=== PATIENT | female | born 2000 | race Native Hawaiian/Other Pacific Islander ===

== ENCOUNTER 2024-03-01 09:48 | Emergency (ER) | payer SELFPAY ==
[2024-03-01 10:32] LABS: Specific Gravity 1.026 (1.005-1.030)
[2024-03-01 10:33] LABS: Specific Gravity 1.026 (1.005-1.030); Sqamous Epithelial <5 /HPF (None Seen); Urine Bacteria None Seen /HPF (<20); Urine Bilirubin NEGATIVE (Negative); Urine Blood Negative (Negative); Urine Clarity Turbid (Clear); Urine Color Yellow (Yellow); Urine Culture Reflex Order NOT NEEDED; Urine Glucose NEGATIVE (Negative); Urine Ketones NEGATIVE (Negative); Urine Microscopic Reflex YN ORDER UMIC; Urine Mucus 1+ /HPF (None Seen); Urine Nitrite NEGATIVE (Negative); Urine Protein TRACE (Negative); Urine RBC <5 /HPF (None Seen); Urine Urobilinogen Normal (Normal); Urine WBC <5 /HPF (<5); Urine pH 6.5 (5.0-7.0)
[2024-03-01 10:55] LABS: Absolute Basophils 0.1 K/uL (0-0.5); Absolute Eosinophils 0.3 K/uL (0-0.5); Absolute Lymphocytes (CBC) 1.9 K/uL (0.7-4.9); Absolute Monocytes 0.4 K/uL (0.1-1.3); Absolute Neutrophil 4.4 K/uL (1.8-8.0); Eosinophils % 3.7 % (0-4.4); Hematocrit 40.8 % (36.0-45.0); Hemoglobin 13.5 g/dL (12.0-15.0); Lymphocytes % 26.9 % (15.3-44.8); MCH 28.9 pg (27.0-35.0); MCHC 33.1 g/dL (32.0-36.0); MCV 87.4 fL (80-100); MPV 7.2 fL (7.6-11.3); Neutrophils % 62.4 % (41.7-73.7); Platelets 351 thou/uL (152-406); RBC Red Blood Cell Count 4.67 M/uL (3.86-4.86); Red Cell Distribution Width 13.6 % (12.1-15.2)
[2024-03-01 11:08] LABS: Albumin 3.7 g/dL (3.4-5.0); Anion Gap 5.7 mEq/L (5.0-15.0); Bilirubin Total 0.3 mg/dL (0.2-1.0); Globulin 3.8 g/dL (2.3-3.5); Potassium 3.7 mEq/L (3.5-5.1); Protein, Total 7.5 g/dL (6.4-8.2)
--- NOTE | 2024-03-01 11:35 | RAD REPORT ---
EXAM DESCRIPTION: US - Abdomen Exam Limited - 03/01/2024 10:39 am CLINICAL HISTORY: Abdominal pain. COMPARISON: None. FINDINGS: Gallbladder is contracted. This limits detection of a gallstones. A gallstone however is n ot seen. Gallbladder wall thickness is within normal limits given the contraction The biliary tree is normal caliber. IMPRESSION: Contracted gallbladder. This can be seen with chronic cholecystitis
--- NOTE | 2024-03-01 11:56 | RAD REPORT ---
EXAM DESCRIPTION: CT - Abdomen Pelvis W Contrast - 03/01/2024 10:47 am CLINICAL HISTORY: Abdominal pain COMPARISON: none. TECHNIQUE: Computed axial tomography of the abdomen pelvis was obtained. 100 cc Isovue-300 was admin istered intravenously. Oral contrast was not requested which limits evaluation of bowel and appendix All CT scans are performed using dose optimization technique as appropriate and may include automated exposure control or mA/KV adjustment according to patient size. FINDINGS: Minimal stranding adjacent to the pancreatic head. Remainder the pancreas is unremarkable. The liver, spleen, adrenals and kidneys are unremarkable. Gallbladder is contracted. Heterogeneous appearance to the liver. Small amount of free fluid within the pelvis. No adnexal mass seen There is no evidence of diverticulitis. Normal appendix IMPRESSION: Minimal stranding adjacent to the pancreatic head may indicate a minimal pancreatitis Heterogeneous appearance to the liver of uncertain significance. Pelvic ultrasound recommended
--- NOTE | 2024-03-01 13:07 | ER ---
Nurse's Notes [facility] Name: Shelly Scott Age: 23 yrs Sex: Female : 2000 Arrival Date: 03/01/2024 Time: 09:48 Bed 10 Private MD: Diagnosis: Abdominal pain, unspecified;Other acute pancreatitis without necrosis or infection Presentation: 03/01 10:09 Chief complaint: Patient states: abdominal pain for 2 days. Coronavirus screen: Client cp4 denies travel out of the [place] in the last 14 days. At this time, the client does not indicate any symptoms associated with coronavirus-19. Ebola Screen: Patient negative for fever greater than or equal to 101.5 degrees Fahrenheit, and additional compatible Ebola Virus Disease symptoms Patient denies exposure to infectious person. Patient denies travel to an Ebola-affected area in the 21 days before illness onset. No symptoms or risks identified at this time. Initial Sepsis Screen: Does the patient meet any 2 criteria? No. Patient's initial sepsis screen is negative. Does the patient have a suspected source of infection? No. Patient's initial sepsis screen is negative. Risk Assessment: Do you want to hurt yourself or someone else? Patient reports no desire to harm self or others. Onset of symptoms was February 28, 2024. 10:09 Method Of Arrival: Ambulatory 4 10:09 Acuity: LORRAINE 3 cp4 Triage Assessment: 10:10 General: Appears uncomfortable, Behavior is calm, cooperative, appropriate for age. cp4 Pain: Complains of pain in abdomen. GI: Abdomen is round non-distended, Bowel sounds present X 4 quads. Abd is soft and non tender X 4 quads. Reports nausea, vomiting. 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 - Infectious Disease History:: Denies. CDIFF, C. Auris, ESBL, MRSA (w/in 1 year), VRE (w/in 1 year), TB, . - Social history:: Smoking status: Patient denies any tobacco usage or history of. - Family history:: not pertinent. - Hospitalizations: : No recent hospitalization is reported. Screenin:12 [facility] ED Fall Risk Assessment (Adult) History of falling in the last 3 months, cp4 including since admission No falls in past 3 months (0 pts) Confusion or Disorientation No (0 pts) Intoxicated or Sedated No (0 pts) Impaired Gait No (0 pts) Mobility Assist Device Used No (0 pt) Altered Elimination No (0 pt) Score/Fall Risk Level 0 - 2 = Low Risk Oriented to surroundings, Maintained a safe environment, Assessed \T\ reinforced patient's understanding of fall precautions, Hourly rounding (assess needs \T\ fall precautionary measures) done. Abuse screen: Denies threats or abuse. Nutritional screening: No deficits noted. Tuberculosis screening: No symptoms or risk factors identified. Assessment: 10:12 Reassessment: No changes from previously documented assessment. cp4 Vital Signs: 10:09 BP 124 / 83; Pulse 63; Resp 16; Temp 98.2; Pulse Ox 100% ; Weight 82.55 kg; Height 0 cp4 ft. 2 in. ; Pain 7/10; 13:14 BP 118 / 74; Pulse 67; Resp 18; Pulse Ox 100% ; cp4 10:09 Body Mass Index 53579.61 (82.55 kg, 6 cm) cp4 10:09 Pain Scale: Adult cp4 ED Course: 09:50 Patient arrived in ED. rg4 09:57 Ang Arana MD is Attending Physician. rn 10:02 Dottie Dia is Primary Nurse. cp4 10:10 Triage completed. cp4 10:10 Arm band placed on right wrist. Patient placed in an exam room, on a stretcher. cp4 10:12 Placed in gown. Bed in low position. Call light in reach. Side rails up X 1. cp4 10:26 Test, Urine Sent. cp4 10:26 Urinalysis w/ reflexes Sent. cp4 10:35 US Abdomen Limited In Process Unspecified. EDMS 10:48 CT Abd/Pelvis - IV Contrast Only In Process Unspecified. EDMS 10:53 Initial lab(s) drawn, by hi, sent to lab. Urine collected: clean catch specimen, cp4 cloudy. Inserted saline lock: 20 gauge in right antecubital area, using aseptic technique. Blood collected. 13:09 Julio Cesar Maldonado MD is Referral Physician. rn 13:17 No provider procedures requiring assistance completed. intact, bleeding controlled, No cp4 redness/swelling at site. Pressure dressing applied. 13:18 Provided Education on: pancreatitis. cp4 Administered Medications: No medications were administered Medication: 10:12 VIS not applicable for this client. cp4 Outcome: 13:07 Discharge ordered by . rn 13:17 Discharged to home ambulatory, cp4 13:17 Condition: stable 13:17 Discharge instructions given to patient, Instructed on discharge instructions, follow up and referral plans. medication usage, Demonstrated understanding of instructions, follow-up care, medications, Prescriptions given X 2, 13:18 Patient left the ED. cp4 Signatures: Dispatcher [employer] EDAng Wilkins MD MD rn Garcia, Rubi rg4 Potter, Christina cp4
--- NOTE | 2024-03-01 13:07 | EDPHYS ---
Physician Documentation [facility] Name: Shelly Scott Age: 23 yrs Sex: Female : 2000 Arrival Date: 03/01/2024 Time: 09:48 Bed 10 Private MD: ED Physician Ang Arana HPI: 03/01 10:21 This 23 yrs old Female presents to ER via Ambulatory with complaints of Abdominal Pain. rn 10:21 The patient presents with abdominal pain in the lower abdomen, in the right upper rn quadrant. Onset: The symptoms/episode began/occurred 2 day(s) ago. The symptoms do not radiate. Associated signs and symptoms: Pertinent positives: nausea and vomiting, Pertinent negatives: blood in stools, chest pain, fever. The symptoms are described as intermittent, sharp. Modifying factors: The symptoms are alleviated by nothing, the symptoms are aggravated by touching the area. Severity of pain: At its worst the pain was moderate in the emergency department the pain has improved. The patient has experienced similar episodes in the past. Patient reports right upper quadrant and lower suprapubic abdominal pain for 2 days. Has had this several times in the past and has not been evaluated for it. Tends to go away on its own. Sometimes worse after eating. Today did not eat anything and started with abdominal pain again. Last menstrual cycle was 2 weeks ago. No history of ovarian cyst. Currently abdominal pain is mild and seems to be improving. Did have 1 episode of vomiting with this pain. No blood in stool. No vaginal discharge. 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 - Infectious Disease History:: Denies. CDIFF, C. Auris, ESBL, MRSA (w/in 1 year), VRE (w/in 1 year), TB, . - Social history:: Smoking status: Patient denies any tobacco usage or history of. - Family history:: not pertinent. - Hospitalizations: : No recent hospitalization is reported. ROS: 10:21 Constitutional: Negative for fever, chills, and weight loss, Cardiovascular: Negative rn for chest pain, palpitations, and edema, Respiratory: Negative for shortness of breath, cough, wheezing, and pleuritic chest pain, Abdomen/GI: Positive for right upper quadrant and lower abdominal pain Back: Negative for injury and pain, MS/Extremity: Negative for injury and deformity, Skin: Negative for injury, rash, and discoloration, Neuro: Negative for headache, weakness, numbness, tingling, and seizure, Exam: 10:21 Constitutional: This is a well developed, well nourished patient who is awake, alert, rn and in no acute distress. Cardiovascular: Regular rate and rhythm. No pulse deficits. Respiratory: No increased work of breathing, no retractions or nasal flaring. Abdomen/GI: Soft, mild right upper quadrant tenderness and suprapubic tenderness. No rebound or guarding. Negative Evans Back: No spinal tenderness. No costovertebral tenderness. Full range of motion. MS/ Extremity: Pulses equal, no cyanosis. Neuro: Awake and alert, GCS 15 Vital Signs: 10:09 BP 124 / 83; Pulse 63; Resp 16; Temp 98.2; Pulse Ox 100% ; Weight 82.55 kg; Height 0 cp4 ft. 2 in. ; Pain 7/10; 13:14 BP 118 / 74; Pulse 67; Resp 18; Pulse Ox 100% ; cp4 10:09 Body Mass Index 90077.61 (82.55 kg, 6 cm) cp4 10:09 Pain Scale: Adult cp4 MDM: 09:58 Patient medically screened. rn 13:02 Differential diagnosis: cholecystitis, Cholelithiasis, diverticulitis, Endometriosis, rn gastritis, gastroesophageal reflux disease, non-specific abd pain, pancreatitis, Peptic Ulcer Disease, Perf. Duodenal Ulcer, Perf. Gastric Ulcer. Data reviewed: vital signs, nurses notes, lab test result(s), radiologic studies, CT scan, and as a result, I will discharge patient. Counseling: I had a detailed discussion with the patient and/or guardian regarding the historical points, exam findings, and any diagnostic results supporting the discharge/admit diagnosis, lab results, radiology results, the need for outpatient follow up, to return to the emergency department if symptoms worsen or persist or if there are any questions or concerns that arise at home. Special discussion: Based on the patient's Hx, exam, and Dx evaluation, there is no indication for emergent surgery or inpatient Tx. It is understood by the patient/guardian that if the Sx's persist or worsen they need to return immediately for re-evaluation. I discussed with the patient/guardian in detail that at this point there is no indication for admission to the hospital. It is understood, however, that if the symptoms persist or worsen the patient needs to return immediately for re-evaluation. ED course: Patient with possibly very mild pancreatitis and contracted gallbladder. No stones. No evidence of cholecystitis. No need for emergent admission at this time. Will discharge home with pain meds, healthy diet and general surgery follow-up. Patient does state has been starving herself lately and efforts to lose weight, denies any supplements. States eats only occasionally, only 1 meal a day. I have personally reviewed all of the results, including but not limited to blood tests and imaging deemed necessary to safely discharge this patient at this time. All results given to and printed out for patient. I personally went over all the results with the patient and answered all questions. Patient will follow-up with PCP and or specialist as discussed. Return precautions given and understood.. 03/01 10:05 Order name: CBC with Diff; Complete Time: 11:12 rn 03/01 10:05 Order name: CMP; Complete Time: 11:12 rn 03/01 10:05 Order name: Lipase; Complete Time: 11: rn 03/01 10:05 Order name: Test, Urine; Complete Time: 11:12 rn 03/01 10:05 Order name: Urinalysis w/ reflexes; Complete Time: 11:12 rn 03/01 10:05 Order name: CT Abd/Pelvis - IV Contrast Only; Complete Time: 12:54 rn 03/01 10:05 Order name: US Abdomen Limited; Complete Time: 12:54 rn 03/01 10:05 Order name: IV Saline Lock; Complete Time: 10:52 rn 03/01 10:05 Order name: Labs collected and sent; Complete Time: 10:52 rn Administered Medications: No medications were administered Disposition Summary: 03/01/24 13:07 Discharge Ordered Notes: Location: Home rn Problem: new rn Symptoms: have improved rn Condition: Stable rn Diagnosis - Abdominal pain, unspecified rn - Other acute pancreatitis without necrosis or infection rn Followup: rn - With: Private Physician - When: As needed - Reason: Recheck today's complaints, Re-evaluation by your physician Followup: rn - With: Julio Cesar Maldonado MD - When: As needed - Reason: Further diagnostic work-up, Recheck today's complaints, Re-evaluation by your physician Discharge Instructions: - Discharge Summary Sheet rn - Abdominal Pain, Adult rn - Acute Pancreatitis rn - Pancreatitis Eating Plan rn Forms: - Medication Reconciliation Form rn - Antibiotic 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
[2024-03-01 13:48] VITALS: BP 118/74; TEMP 98.2; O2SAT 100
== END 2024-03-01 13:18 | disposition home or self-care (01) ==
LOC: ER 09:48
DX: K85.80 Other acute pancreatitis without necrosis or infection (principal)
CPT/HCPCS: 36415; 74177; 76705; 80053; 81001; 81025; 83690; 85025; 99284; Q9967